=== PATIENT | female | born 1965 | race Two or more races ===

== ENCOUNTER 2017-07-07 00:53 | Emergency (ER) | payer OTHER ==
[~2017-07-07] VITALS: Ht 160 cm; Wt 81.6 kg
[2017-07-07] MEDS: FLUORESCEIN SODIUM 1 MG STRIP OP ONE (01:22)
[2017-07-07] MEDS ORDERED: TETRACAINE HCL 0.5% OPHT DROP 2 ML BOTTLE ONE (01:27)
[2017-07-07] MEDS ORDERED: FLUORESCEIN SODIUM 1 MG STRIP ONE (01:27)
[2017-07-07] MEDS: SULFACETAMIDE SOD 10% OPHT DR 15 ML BOTTLE OP ONE (01:32)
--- NOTE | 2017-07-07 01:40 | NUR ---
Patient discharged to home in stable conditon. Written and verbal after care instructions given. Patient verbalizes understanding of instructions.
[2017-07-07] MEDS ORDERED: SULFACETAMIDE SOD 10% OPHT DR 15 ML BOTTLE ONE (01:43)
== END 2017-07-07 02:09 | disposition home or self-care (01) ==
LOC: ER 01:04
DX: S05.01XA Injury of conjunctiva and corneal abrasion without foreign body, right eye, initial encounter (principal); X58.XXXA Exposure to other specified factors, initial encounter; Y93.89 Activity, other specified; Y92.89 Other specified places as the place of occurrence of the external cause; Y99.8 Other external cause status
CPT/HCPCS: 99283; A4663